=== PATIENT | female | born 1950 | race Caucasian/White ===

== ENCOUNTER → 2018-10-03 13:55 | Outpatient (CLI) | payer OTHER, SELFPAY ==
[2018-10-03 15:02] LABS: BUN Creatinine Ratio 22.2 (6-22); Blood Urea Nitrogen 20 mg/dL (7-17); Calcium 9.7 mg/dL (8.4-10.2); Carbon Dioxide 30 mmol/L (22-32); Chloride 102 mmol/L (98-107); Estimated Glomerular Filt Rate > 60.0 mL/min (>60); Glucose 104 mg/dL (80-110); HEMOLYSIS 31 (0-50); Potassium 4.1 mmol/L (3.4-5.1); Sodium 139 mmol/L (137-145)
[2018-10-03 15:19] LABS: Vitamin D 25 Hydroxy (D3) 45.3 ng/mL (30.0-100.0)
== END ==
PROVIDERS: PCP Student in an Organized Health Care Education/Training Program; Visit Provider Student in an Organized Health Care Education/Training Program
DX: E55.9 Vitamin D deficiency, unspecified (principal); N18.9 Chronic kidney disease, unspecified
CPT/HCPCS: 36415; 80048; 82306

== ENCOUNTER → 2019-01-02 14:05 | Outpatient (CLI) | payer OTHER, SELFPAY | PROVIDERS: PCP Student in an Organized Health Care Education/Training Program; Visit Provider Student in an Organized Health Care Education/Training Program | DX: M85.88 Other specified disorders of bone density and structure, other site (principal); Z78.0 Asymptomatic menopausal state; E07.9 Disorder of thyroid, unspecified | CPT/HCPCS: 77080 ==

== ENCOUNTER → 2020-05-01 14:58 | Outpatient (CLI) | payer OTHER, SELFPAY ==
[2020-05-01 15:49] LABS: Blood Urea Nitrogen 24 mg/dL (7-17); Calcium 8.8 mg/dL (8.4-10.2); Carbon Dioxide 28 mmol/L (22-32); Chloride 104 mmol/L (98-107); Estimated Glomerular Filt Rate 57.5 mL/min (>60); Glucose 104 mg/dL (80-110); HEMOLYSIS < 15 (0-50); Potassium 3.6 mmol/L (3.4-5.1); Sodium 139 mmol/L (137-145)
== END ==
PROVIDERS: PCP Student in an Organized Health Care Education/Training Program; Referring Provider Student in an Organized Health Care Education/Training Program; Visit Provider Student in an Organized Health Care Education/Training Program
DX: I10 Essential (primary) hypertension (principal)
CPT/HCPCS: 36415; 80048

== ENCOUNTER → 2020-10-24 09:15 | Outpatient (CLI) | payer OTHER, SELFPAY ==
[2020-10-24 10:46] LABS: COVID19 -Nasal RAPID Negative (Negative)
== END ==
PROVIDERS: PCP Student in an Organized Health Care Education/Training Program; Visit Provider Surgery
DX: Z20.822 Contact with and (suspected) exposure to COVID-19 (principal)
CPT/HCPCS: 87635; C9803

== ENCOUNTER 2020-10-27 07:24 | Day surgery (SDC) | payer OTHER, SELFPAY ==
[2020-10-27 07:41] VITALS: BP 158/96; PULSE 106; RESP 13; TEMP 36.6; O2SAT 97; BMI 26.6
[2020-10-27] MEDS: LACTATED RINGERS 1,000 ML 200 ML IV (07:56)
--- NOTE | 2020-10-27 08:15 | PM.HP.1 ---
History of Present Illness History of Present Illness Date Patient Seen: 10/27/20 Time Patient Seen: 08:15 Chief complaint: SCREENING COLONOSCOPY Narrative: The patient presents for colorectal sreening. He has had a previously normal colonoscopy 10 years ago.. No personal or family history of colon cancer. On further history denies any recent gastrointestinal symptoms. No nausea, vomiting, abdominal pain, loss of appetite, unexplained weight loss, change in bowel habits, diarrhea, constipation, melena, hematochezia, or bright red blood per rectum. Patient History Medical History Hypertension Hypothyroidism Family & Social History Family History Mother Breast cancer Father Stroke Brother Diabetes mellitus Obesity Grandfather Colon cancer Social History: household members spouse lives independently Yes Tobacco & Substance use: Smoking Status Never smoker alcohol intake current alcohol intake frequency a few times a week Substance Use Type does not use Meds Home Medications and Allergies Home Medications Medication Instructions Recorded Confirmed Type fluticasone propionate 50 1 spray NASAL DAILY gram 10/03/18 10/27/20 History mcg/actuation nasal spray,suspension diltiazem HCl 180 mg 360 mg PO DAILY #180 cap 05/14/20 10/27/20 Rx capsule,extended release 24 hr, controlled levothyroxine 125 mcg tablet 125 mcg PO QDAY #90 tab 06/23/20 10/27/20 Rx Allergies Allergy/AdvReac Type Severity Reaction Status Date / Time No Known Drug Allergies Allergy Verified 05/01/20 13:59 Review of Systems Review of Systems ROS: Yes All systems reviewed with the patient and are negative except as otherwise documented Exam Vital Signs (past 8 hours): - 10/27/20 07:41 Temperature 98 F Pulse Rate 106 H Respiratory Rate 13 Blood Pressure 158/96 H Pulse Oximetry 97 Oxygen Delivery Method Room Air Oxygen Flow Rate 0 Narrative Exam Narrative: General-no acute distress, well nourished adult woman HEENT-moist mucous membranes, no scleral icterus Neck-supple, no lymphadenopathy Chest- non labored respirations, clear to auscultation bilaterally Cardiac-regular rate no peripheral edema Abdomen-soft, nontender, non distended Extremities-warm, well perfused Neurological-alert and oriented, no focal deficits Assessment & Plan Assessment & Plan narrative: The patient requires colorectal screening and colonoscopy is recommended. Technical details were discussed. Risks, benefits, alternatives explained. Risks including but not limited to myocardial infarction, aspiration, bleeding, pain, missed lesion, incomplete examination, need for further radiographic studies, colonic perforation, and need for major abdominal surgery were discussed. All questions were answered to their satisfaction, and they are in agreement with this plan.
[2020-10-27] MEDS: fentaNYL 250 MCG/5 ML INJ IV (08:31)
[2020-10-27] MEDS: MIDAZOLAM 5 MG/5 ML VIAL IV (08:31)
--- NOTE | 2020-10-27 08:48 | PM.OP.ENDO ---
Operative Date/Time/Diagnoses Date of procedure: 10/27/20 Time of procedure: 08:48 Pre-op diagnosis: screening colonoscopy Post-op diagnosis: same Procedure & Clinicians Study performed: colonoscopy Same procedure as scheduled: Yes Indications: 70F last colonoscopy 10 yrs ago normal presents for routine screening Surgeon: Aris Mckeon Procedure Notes Procedure in detail: Medications: Conscious sedation using 5mg IV midazolam and 150mcg IV of fentanyl The history and physical was performed/updated and the patient is ASA class is 2. The procedure was discussed in detail with the patient. Potential risks complications including infection, bleeding, missed diagnosis, perforation, need for surgery, and were explained. Their questions were answered and informed consent was obtained. Patient was brought to the procedure room and placed standard monitoring equipment. The patient's vital signs were monitored continuously throughout the entire procedure. Prior to starting time-out was performed. The patient was placed in the left lateral recumbent position. Procedural sedation was administered. Examination began with a thorough inspection of the perianal area there was no evidence of fissures, fistulae, external hemorrhoids or cutaneous malignancy. The colonoscopy scope was then placed into the anal canal and was advanced to the cecum, which was identified by the ileocecal valve, the appendiceal orifice and the confluence of the taenia. The scope was then slowly withdrawn examining colon thoroughly in all directions, irrigating it of any residual stool. No masses or polyps The patient tolerated the procedure well. They will be discharged once criteria are met. The prep was of good/excellent quality. The withdrawl time was 7 minutes. The sedation time was 26 minutes. Specimen(s): none sent Complications: none Impression: Normal colonoscopy Post-procedure Recommendations: Colonscopy in 10 years Disposition: same day surgery
[2020-10-27 08:50] VITALS: BP 119/63; PULSE 81; RESP 19; TEMP 36.2; O2SAT 94
[2020-10-27 08:55] VITALS: BP 118/61; PULSE 81; RESP 12; O2SAT 94
[2020-10-27 09:00] VITALS: BP 116/65; PULSE 79; RESP 15; O2SAT 95
[2020-10-27 09:04] VITALS: BP 123/72; PULSE 76; RESP 21; O2SAT 95
[2020-10-27 09:09] VITALS: BP 127/74; PULSE 75; RESP 16; TEMP 36.4; O2SAT 96
== END 2020-10-27 09:20 | disposition home or self-care (01) ==
PROVIDERS: PCP Student in an Organized Health Care Education/Training Program; Referring Provider Student in an Organized Health Care Education/Training Program; Visit Provider Surgery
PROC: 0DJD8ZZ Inspection of Lower Intestinal Tract, Via Natural or Artificial Opening Endoscopic (ICD-10-PCS; CPT 45378; principal; 2020-10-27 08:30)
DX: Z12.11 Encounter for screening for malignant neoplasm of colon (principal); I10 Essential (primary) hypertension; E03.9 Hypothyroidism, unspecified
CPT/HCPCS: G0121; 99152; 99153; J2250; J3010

== ENCOUNTER → 2021-09-10 10:39 | Outpatient (CLI) | payer OTHER, SELFPAY ==
[2021-09-10 13:45] LABS: BUN Creatinine Ratio 20.7 (6-22); Blood Urea Nitrogen 18 mg/dL (7-17); Calcium 9.3 mg/dL (8.4-10.2); Carbon Dioxide 29 mmol/L (22-32); Chloride 105 mmol/L (98-107); Estimated Glomerular Filt Rate > 60.0 mL/min (>60); Glucose 96 mg/dL (80-110); HEMOLYSIS < 15 (0-50); Potassium 4.6 mmol/L (3.4-5.1); Sodium 139 mmol/L (137-145)
[2021-09-10 14:07] LABS: TSH w/ Reflex to FT4 0.07 uIU/mL (0.47-4.68)
[2021-09-10 14:40] LABS: Free T4, Direct Thyroxine 1.58 ng/dL (0.78-2.19)
== END ==
PROVIDERS: PCP Student in an Organized Health Care Education/Training Program; Referring Provider Student in an Organized Health Care Education/Training Program; Visit Provider Student in an Organized Health Care Education/Training Program
DX: I10 Essential (primary) hypertension (principal); N18.2 Chronic kidney disease, stage 2 (mild); E03.9 Hypothyroidism, unspecified
CPT/HCPCS: 36415; 80048; 84439; 84443

== ENCOUNTER → 2021-11-14 12:40 | Outpatient (CLI) | payer OTHER, SELFPAY ==
[2021-11-14 14:09] LABS: TSH w/ Reflex to FT4 0.82 uIU/mL (0.47-4.68)
== END ==
PROVIDERS: PCP Student in an Organized Health Care Education/Training Program; Referring Provider Student in an Organized Health Care Education/Training Program; Visit Provider Student in an Organized Health Care Education/Training Program
DX: E03.9 Hypothyroidism, unspecified (principal)
CPT/HCPCS: 36415; 84443

== ENCOUNTER → 2021-12-29 14:15 | Outpatient (CLI) | payer OTHER, SELFPAY ==
--- NOTE | 2021-12-29 14:16 | DI.MG.S_ITS ---
BILATERAL DIGITAL SCREENING MAMMOGRAM 3D/2D WITH CAD: 12/29/2021 CLINICAL: Routine screening. Family history of breast cancer. Comparison is made to exams dated: 09/21/2017 mammogram, 05/29/2015 mammogram, and 01/12/2011 mammogram - [facility]. There are scattered fibroglandular elements in both breasts. Current study was also evaluated with a Computer Aided Detection (CAD) system. There are benign calcifications in both breasts. No significant masses, calcifications, or other findings are seen in either breast. There has been no significant interval change. IMPRESSION: BENIGN There is no mammographic evidence of malignancy. A 1 year screening mammogram is recommended. This exam was interpreted at Station ID: [id number]. NOTE: For mammograms, a report in lay terms will be sent to the patient. Approximately 15% of breast malignancies will not be visualized mammographically. In the management of a palpable breast mass, a negative mammogram must not discourage biopsy of a clinically suspicious lesion. Electronically Signed By: Delilah devlin/pilar:12/29/2021 16:31:44 letter sent: Normal Exam ACR BI-RADS Category 2: Benign Finding(s) 3342F
== END ==
PROVIDERS: PCP Student in an Organized Health Care Education/Training Program; Referring Provider Student in an Organized Health Care Education/Training Program; Visit Provider Student in an Organized Health Care Education/Training Program
DX: Z13.820 Encounter for screening for osteoporosis (principal); Z12.31 Encounter for screening mammogram for malignant neoplasm of breast; Z80.3 Family history of malignant neoplasm of breast; M85.89 Other specified disorders of bone density and structure, multiple sites; Z78.0 Asymptomatic menopausal state; Z79.890 Hormone replacement therapy
CPT/HCPCS: 77063; 77067; 77080

== ENCOUNTER → 2022-01-13 11:31 | Outpatient (CLI) | payer OTHER, SELFPAY ==
[2022-01-13 11:59] LABS: COVID19 -Nasal RAPID Negative (Negative)
== END ==
PROVIDERS: PCP Student in an Organized Health Care Education/Training Program; Visit Provider Physician Assistant
DX: Z20.822 Contact with and (suspected) exposure to COVID-19 (principal)
CPT/HCPCS: 87635

== ENCOUNTER → 2022-03-30 17:36 | Outpatient (CLI) | payer OTHER, SELFPAY ==
[2022-03-30 18:15] LABS: COVID19 -Nasal RAPID Negative (Negative)
== END ==
PROVIDERS: PCP Student in an Organized Health Care Education/Training Program; Visit Provider Physician Assistant
DX: Z20.822 Contact with and (suspected) exposure to COVID-19 (principal)
CPT/HCPCS: 87635

== ENCOUNTER → 2022-09-23 08:13 | Outpatient (CLI) | payer OTHER, SELFPAY ==
[2022-09-23 08:48] LABS: BUN Creatinine Ratio 18.7 (6-22); Blood Urea Nitrogen 20 mg/dL (7-17); Calcium 9.2 mg/dL (8.4-10.2); Carbon Dioxide 29 mmol/L (22-32); Chloride 102 mmol/L (98-107); Cholesterol 213 mg/dL (140-199); Estimated Glomerular Filt Rate 55 mL/min (>60); Glucose 87 mg/dL (80-110); HDL Cholesterol 88 mg/dL (40-60); HEMOLYSIS < 15 (0-50); LDL Cholesterol Calculated 109 mg/dL (<100); Sodium 140 mmol/L (137-145); Triglycerides 79 mg/dL (35-150)
[2022-09-23 09:17] LABS: TSH w/ Reflex to FT4 0.83 uIU/mL (0.47-4.68)
[2022-09-23 16:29] LABS: Hep C Virus Ab w/Reflex Quant NEGATIVE s/c (NEGATIVE)
== END ==
PROVIDERS: PCP Student in an Organized Health Care Education/Training Program; Referring Provider Student in an Organized Health Care Education/Training Program; Visit Provider Student in an Organized Health Care Education/Training Program
DX: I10 Essential (primary) hypertension (principal); Z13.220 Encounter for screening for lipoid disorders; Z11.59 Encounter for screening for other viral diseases; E03.9 Hypothyroidism, unspecified
CPT/HCPCS: 36415; 80048; 80061; 84443; 86803

== ENCOUNTER 2022-10-28 18:20 | Emergency (ER) | payer OTHER, SELFPAY ==
[2022-10-28] VITALS (64 sets, daily range): BP systolic 111–161; BP diastolic 58–79; PULSE 61–79; RESP 8–31; TEMP 36.3–36.4; O2SAT 86–99; BMI 25.8
--- NOTE | 2022-10-28 18:29 | DI.RAD.S_ITS ---
PROCEDURE: XR WRIST RT MIN 3V INDICATIONS: fall from a horse with poss injury TECHNIQUE: Three views of the wrist were acquired. COMPARISON: [facility], , WRIST MINIMUM 3 VIEWS RIGHT, 07/05/2011, 9:32. FINDINGS: Bones: There is a dorsally displaced and impacted transverse distal radius fracture. The distal radioulnar relationship is disrupted. There is an ulnar styloid fracture in the ulnar styloid fragment is not well seen. Radiocarpal relationship is probably intact. Soft tissues: No suspicious soft tissue calcifications. IMPRESSION: 1. Dorsally displaced and impacted distal radius fracture and probable distal radioulnar dissociation. 2. Radiocarpal association is probably intact. Post reduction radiographs are recommended. 3. Displaced ulnar styloid fracture. Dictated by: Jessenia Wild M.D. on 10/28/2022 at 19:19 Approved by: Jessenia Wild M.D. on 10/28/2022 at 19:22
[2022-10-28] MEDS: MORPHINE 2 MG/ML INJ IV (18:51)
[2022-10-28] MEDS: ONDANSETRON 4 MG/2 ML INJ IV ×2 (18:51→23:05)
[2022-10-28 19:08] LABS: Add Manual Diff / Slide Review NO; Basophils Absolute Auto 100 /uL (0-100); Basophils Percent Auto 1.1 % (0-2); Eosinophils Absolute Auto 100 /uL (0-450); Eosinophils Percent Auto 2.1 % (2-4); Hemoglobin 15.5 g/dL (12.0-16.0); Lymphocytes Absolute Auto 2000 /uL (1100-4500); Lymphocytes Percent Auto 35.7 % (25-40); Mean Corpuscular HGB Conc 33.6 % (30-36); Mean Corpuscular Hemoglobin 30.2 PG (26-34); Mean Corpuscular Volume 89.9 fL (80-100); Monocytes Absolute Auto 600 /uL (0-900); Monocytes Percent Auto 11.2 % (3-14); Neutrophils Absolute Auto 2800 /uL (1500-7000); Neutrophils Percent Auto 49.9 % (50-75); Platelet Count 191 X10^3/uL (150-400); Red Blood Cell Count 5.11 X10^6/uL (4.0-5.2); Red Cell Distribution Width 13.4 % (11.6-14.8); White Blood Cell Count 5.5 X10^3/uL (4.5-11.0)
[2022-10-28 19:17] LABS: Alanine Aminotransferase 27 IU/L (<35); Albumin 4.4 g/dL (3.5-5.0); Albumin Globulin Ratio 1.2 (1.0-2.8); Alkaline Phosphatase 92 U/L (38-126); Aspartate Aminotransferase 27 IU/L (14-36); BUN Creatinine Ratio 15.7 (6-22); Bilirubin Total 0.6 mg/dL (0.2-1.3); Blood Urea Nitrogen 18 mg/dL (7-17); Calcium 9.2 mg/dL (8.4-10.2); Carbon Dioxide 28 mmol/L (22-32); Chloride 101 mmol/L (98-107); Estimated Glomerular Filt Rate 51 mL/min (>60); Globulin 3.7 g/dL (1.7-4.1); Glucose 140 mg/dL (80-110); HEMOLYSIS 16 (0-50); Potassium 3.3 mmol/L (3.4-5.1); Sodium 137 mmol/L (137-145); Total Protein 8.1 g/dL (6.3-8.2)
--- NOTE | 2022-10-28 19:43 | ED.UPPEXIN ---
HPI - Extremity Injury (Upper) General Chief Complaint: Extremity Injury, Upper Stated Complaint: R wrist injury Time Seen by Provider: 10/28/22 18:36 Source: patient and family Mode of arrival: Wheelchair History of Present Illness HPI narrative: Patient is a 72-year-old female history of hypothyroid presenting today with a right wrist deformity and pain. She was getting on a horse left foot in [facility] she decided not take it on the horse suddenly she fell down right arm catching herself. She did not hit her head or lose consciousness she has no neck pain no nausea or vomiting. She denies any other injury. She is quite a deformed right wrist able to move her fingers. In triage she got very close to syncopized thing blood pressure was low she did not pass out. She quickly recovered likely a vasovagal reaction she has a chest pain or other symptoms Related Data Previous Rx's Medication Instructions Recorded levothyroxine 112 mcg tablet 112 mcg PO DAILY #90 tabs 09/23/22 diltiazem HCl 180 mg 360 mg PO DAILY #180 caps 10/28/22 capsule,extended release 24 hr, controlled (DILT-XR) Allergies Allergy/AdvReac Type Severity Reaction Status Date / Time No Known Drug Allergies Allergy Verified 10/28/22 18:23 Review of Systems Review of Systems ROS Unobtainable: All systems reviewed & are unremarkable except as noted in HPI and below Patient History Medical History CKD stage G2/A2, GFR 60-89 and albumin creatinine ratio 30-299 mg/g Essential hypertension (11/30/12) Hypothyroidism (acquired) (11/30/12) Family History Mother Breast cancer Father Stroke Brother Diabetes mellitus Obesity Grandfather Colon cancer Social History marital status: number of children: 2 household members: spouse lives independently: Yes education level: college (Bachelor's degree) occupational status: employed Smoking Status: Never smoker alcohol intake: current substance use type: does not use Smoking Status: Never smoker alcohol intake frequency: a few times a week Substance Use Type: does not use Exam Initial Vital Signs Initial Vital Signs: Vital Signs Pulse Rate 61 10/28/22 18:23 Respiratory Rate 16 10/28/22 18:23 Blood Pressure 111/59 L 10/28/22 18:23 Pulse Oximetry 99 10/28/22 18:23 Oxygen Delivery Method Room Air 10/28/22 18:23 GENERAL: Alert 72-year-old female appears uncomfortable in and in [no acute] distress. HEENT: Head atraumatic,EOMI, pupils reactive, face symmetric, [moist] mucous membranes CARDIOVASCULAR: Regular rate and rhythm without murmurs, rubs or gallops. RESPIRATORY: Breath sounds equal bilaterally, no wheezes rales or rhonchi. ABDOMEN: Soft, nontender. Normoactive bowel sounds all 4 quadrants. No guarding or rebound. EXTREMITIES: Normal range of motion, no clubbing or edema. Neurovascularly intact Right upper extremity gross deformity distal radial pulse intact able to move all fingers NEUROLOGICAL: Alert and oriented x4. SKIN: Warm, dry, no laceration, no petechiae, no rashes or lesions. Procedures Orthopedic Fracture Reduction Fracture #1: Time Out Performed: Yes Side: right Fracture Reduction Location: radius and ulna Analgesia: procedural sedation Technique: direct manipulation and traction/counter-traction Post Reduction X-rays Demonstrate: acceptable reduction Post-reduction neuro exam: intact Post-reduction vascular exam: intact Splint Applied: Yes Patient Tolerated Procedure: Well and No complications Procedural Sedation Consent signed: Yes Time out performed: Yes Indication: fracture/dislocation reduction ASA Class: I Mallampati Airway Classification: Class I IV Propofol dose (mg): 100 Intraservice time/total sedation time (min): 11 ED Sedation Level: Moderate (Concious) Patient Tolerated Procedure: Well and No complications Course Orders Ordered: ED Orders 10/28/22 23:18 XR wrist RT 2V Stat Discontinued Medications Hydrocodone Bitart/Acetaminophen (Hydrocodone/Acet 5/325 Prepack) 1 bottle MISC SEEINSTR ONE Stop: 10/28/22 23:20 Last Admin: 10/29/22 00:28 Dose: 1 bottle Documented By: MICHELLE Hydromorphone HCl (Hydromorphone 0.5 Mg Inj) 0.5 mg IV NOW ONE Stop: 10/28/22 19:58 Last Admin: 10/28/22 21:06 Dose: 0.5 mg Documented By: NELIDA Hydromorphone HCl (Hydromorphone 0.5 Mg Inj) 0.5 mg IV NOW ONE Stop: 10/28/22 21:02 Hydromorphone HCl (Hydromorphone 0.5 Mg Inj) 0.5 mg IV NOW ONE Stop: 10/29/22 00:11 Last Admin: 10/29/22 00:27 Dose: 0.5 mg Documented By: MICHELLE Morphine Sulfate (Morphine 2 Mg/Ml Inj) 2 mg IV NOW ONE Stop: 10/28/22 18:37 Last Admin: 10/28/22 18:51 Dose: 2 mg Documented By: ANA Ondansetron HCl (Ondansetron 4 Mg/2 Ml Inj) 4 mg IV NOW ONE Stop: 10/28/22 18:38 Last Admin: 10/28/22 18:51 Dose: 4 mg Documented By: ANA Ondansetron HCl (Ondansetron 4 Mg/2 Ml Inj) 4 mg IV NOW ONE Stop: 10/28/22 23:06 Last Admin: 10/28/22 23:05 Dose: 4 mg Documented By: MICHELLE Ondansetron HCl (Ondansetron 4 Mg Odt Prepack) 1 bottle MISC SEEINSTR ONE Stop: 10/28/22 23:20 Last Admin: 10/29/22 00:28 Dose: 1 bottle Documented By: MICHELLE Propofol (Propofol 200 Mg/20 Ml Vial) 75 mg 1 mg/kg (75 mg) IV NOW ONE Stop: 10/28/22 19:58 Last Admin: 10/28/22 23:10 Dose: 75 mg Documented By: MICHELLE Vital Signs Vital signs: Vital Signs - 8 hr 10/28/22 23:19 10/28/22 23:05 10/28/22 23:25 Temperature 97.4 F L 97.3 F L Pulse Rate 68 71 71 Respiratory Rate 16 14 14 Blood Pressure 154/71 H 140/66 Pulse Oximetry 98 95 Oxygen Delivery Method Oxygen Flow Rate 1 1 10/28/22 23:30 10/28/22 23:35 10/28/22 23:40 Temperature 97.6 F 97.5 F L 97.6 F Pulse Rate 70 73 73 Respiratory Rate 16 14 16 Blood Pressure 137/65 142/71 H 128/64 Pulse Oximetry 96 94 96 Oxygen Delivery Method Oxygen Flow Rate 10/28/22 23:50 10/28/22 23:00 10/28/22 23:00 Temperature 97.5 F L Pulse Rate 76 70 Respiratory Rate 14 12 Blood Pressure 134/66 129/64 Pulse Oximetry 93 95 Oxygen Delivery Method Oxygen Flow Rate 10/28/22 23:11 10/28/22 23:11 10/28/22 23:15 Temperature Pulse Rate 75 71 Respiratory Rate 26 H 16 Blood Pressure 133/65 Pulse Oximetry 96 97 Oxygen Delivery Method Oxygen Flow Rate 10/28/22 23:15 10/28/22 23:20 10/28/22 23:20 Temperature Pulse Rate 69 Respiratory Rate 24 Blood Pressure 161/79 H 154/71 H Pulse Oximetry 98 Oxygen Delivery Method Oxygen Flow Rate 10/28/22 23:25 10/28/22 23:25 10/28/22 22:55 Temperature Pulse Rate 70 72 Respiratory Rate 21 12 Blood Pressure 140/66 Pulse Oximetry 95 94 Oxygen Delivery Method Oxygen Flow Rate 10/28/22 23:05 10/28/22 23:10 10/28/22 23:30 Temperature Pulse Rate 75 76 Respiratory Rate 21 21 Blood Pressure 137/65 Pulse Oximetry 98 97 Oxygen Delivery Method Oxygen Flow Rate 10/28/22 23:30 10/28/22 23:35 10/28/22 23:35 Temperature Pulse Rate 71 73 Respiratory Rate 31 H 22 Blood Pressure 142/71 H Pulse Oximetry 95 95 Oxygen Delivery Method Oxygen Flow Rate 10/29/22 00:00 10/28/22 23:40 10/28/22 23:40 Temperature Pulse Rate 74 76 Respiratory Rate 14 22 Blood Pressure 134/65 136/71 Pulse Oximetry 96 86 L Oxygen Delivery Method Oxygen Flow Rate 10/28/22 23:45 10/28/22 23:45 10/28/22 23:50 Temperature Pulse Rate 73 Respiratory Rate 10 L Blood Pressure 128/64 134/66 Pulse Oximetry 93 Oxygen Delivery Method Oxygen Flow Rate 10/28/22 23:50 10/28/22 23:55 10/28/22 23:55 Temperature Pulse Rate 73 75 Respiratory Rate 11 L 14 Blood Pressure 131/66 Pulse Oximetry 88 L 94 Oxygen Delivery Method Oxygen Flow Rate 10/29/22 00:00 10/29/22 00:00 10/29/22 00:05 Temperature Pulse Rate 75 73 Respiratory Rate 13 11 L Blood Pressure 134/65 Pulse Oximetry 97 96 Oxygen Delivery Method Oxygen Flow Rate 10/29/22 00:05 10/29/22 00:10 10/29/22 00:10 Temperature Pulse Rate 74 Respiratory Rate 23 Blood Pressure 133/65 128/65 Pulse Oximetry 96 Oxygen Delivery Method Oxygen Flow Rate 10/29/22 00:15 10/29/22 00:15 10/29/22 00:20 Temperature Pulse Rate 76 Respiratory Rate 32 H Blood Pressure 147/68 H 134/63 Pulse Oximetry 96 Oxygen Delivery Method Oxygen Flow Rate 10/29/22 00:20 10/29/22 00:39 Temperature 97.6 F Pulse Rate 77 70 Respiratory Rate 21 16 Blood Pressure 132/76 Pulse Oximetry 88 L 95 Oxygen Delivery Method Room Air Oxygen Flow Rate MDM - Extremity Injury (Upper) Lab Data 10/28/22 19:00 10/28/22 19:00 Labs: Lab Results 10/28/22 10/28/22 Range/Units 19:00 19:00 WBC 5.5 (4.5-11.0) X10^3/uL RBC 5.11 (4.0-5.2) X10^6/uL Hgb 15.5 (12.0-16.0) g/dL Hct 46.0 (36-46) % MCV 89.9 (80-100) fL MCH 30.2 (26-34) PG MCHC 33.6 (30-36) % RDW 13.4 (11.6-14.8) % Plt Count 191 (150-400) X10^3/uL Neut % (Auto) 49.9 L (50-75) % Lymph % (Auto) 35.7 (25-40) % [place] % (Auto) 11.2 (3-14) % Eos % (Auto) 2.1 (2-4) % Baso % (Auto) 1.1 (0-2) % Neut # (Auto) 2800 (1851-2049) /uL Lymph # (Auto) 2000 (8727-9818) /uL [place] # (Auto) 600 (0-900) /uL Eos # (Auto) 100 (0-450) /uL Baso # (Auto) 100 (0-100) /uL Sodium 137 (137-145) mmol/L Potassium 3.3 L (3.4-5.1) mmol/L Chloride 101 (98-107) mmol/L Carbon Dioxide 28 (22-32) mmol/L BUN 18 H (7-17) mg/dL Creatinine 1.15 H (0.52-1.04) mg/dL Estimated GFR 51 L (>60) mL/min BUN/Creatinine Ratio 15.7 (6-22) Glucose 140 H (80-110) mg/dL Calcium 9.2 (8.4-10.2) mg/dL Total Bilirubin 0.6 (0.2-1.3) mg/dL AST 27 (14-36) IU/L ALT 27 (<35) IU/L Alkaline Phosphatase 92 (38-126) U/L Total Protein 8.1 (6.3-8.2) g/dL Albumin 4.4 (3.5-5.0) g/dL Globulin 3.7 (1.7-4.1) g/dL Albumin/Globulin Ratio 1.2 (1.0-2.8) Point of Care Testing Test Results Not applicable Imaging Data Extremity x-ray #1: Radiologist's Impression: PROCEDURE:? XR WRIST RT MIN 3V ? INDICATIONS: fall from a horse with poss injury ? TECHNIQUE:? Three views of the wrist were acquired.? ? COMPARISON:? [facility], WRIST MINIMUM 3 VIEWS RIGHT, 07/05/2011, 9:32. ? FINDINGS:? ? Bones:? There is a dorsally displaced and impacted transverse distal radius fracture.? The distal radioulnar relationship is disrupted.? There is an ulnar styloid fracture in the ulnar styloid fragment is not well seen.? Radiocarpal relationship is probably intact. ? Soft tissues:? No suspicious soft tissue calcifications.? ? IMPRESSION:? ? 1. Dorsally displaced and impacted distal radius fracture and probable distal radioulnar dissociation. ? 2. Radiocarpal association is probably intact.? Post reduction radiographs are recommended.? ? 3. Displaced ulnar styloid fracture.? ? Dictated by: Jessenia Wild M.D. on 10/28/2022 at 19:19 ? ? Extremity x-ray #2: Radiologist's Impression: PROCEDURE:? XR WRIST RT 2V ? INDICATIONS: post reduction ? TECHNIQUE:? 2 views of the wrist were acquired.? ? COMPARISON:? [facility], XR WRIST RT MIN 3V, 10/28/2022, 18:30. ? FINDINGS:? ? Bones:? There is slightly improved alignment status post closed reduction of the previously described comminuted transverse distal radius fracture.? There is persistent mild dorsal and radial sided displacement and mild impaction.? Radiocarpal association appears preserved.? A mildly displaced ulnar styloid fracture is redemonstrated. ? Soft tissues:? There is a new external splint present. ? IMPRESSION:? ? 1. Slightly improved alignment status post closed reduction previously described comminuted distal radius fracture with mild dorsal and radial sided displacement as well as mild impaction. ? 2. Mildly displaced ulnar styloid fracture.? ? ? Dictated by: Silvio Pack M.D. on 10/29/2022 at 0:25 ? ? ECG Data Interpretation: Normal sinus rhythm rate 70 TN interval 156 QRS [address] changes no T-wave inversion MDM Narrative Medical decision making narrative: Patient 72-year-old female who presents with right wrist fracture had a near syncopal episode in triage her pressure dropped but quickly resolved she actually did not pass out. Blood work was done for an EKG for this reason. She has no anemia no leukocytosis, potassium is 3.3 creatinine 1.1 previously 1.07 other electrolytes within normal limits. Procedure sedation done for wrist. Dr. Raygoza, updated on patient's symptoms test results agrees with outpatient follow-up Discharge Plan Departure Patient Disposition: Home Clinical Impression: Fracture of wrist Instructions: DI for Wrist Fracture Activity Restrictions/Additional Instructions: *You have been diagnosed with right wrist fracture *What to do: At this time keep wrist in splint at all times. He may need to sleep sitting up. Please call orthopedics tomorrow. You may ice through the splint. You will need surgery *Continue to take medications as directed [place] 1 tablet every 6 hours if needed for [id number] pain *Follow up with your primary care provider in 2-3 days or call [phone] Call orthopedic tomorrow to schedule follow-up appointment *Return to ER if you should have increasing pain numbness tingling or any new, worsening or concerning symptoms Prescriptions: No Action levothyroxine 112 mcg tablet 112 mcg PO DAILY Qty: 90 3RF diltiazem HCl [DILT-XR] 180 mg capsule,ext.rel 24h degradable 360 mg PO DAILY Qty: 180 3RF Referrals: Anil Garcia MD [Primary Care Provider] - Koffi Raygoza MD [Physician] - Stand Alone Forms: Patient Portal/API
[2022-10-28] MEDS: HYDROMORPHONE 0.5 MG INJ IV (21:06)
[2022-10-28] MEDS: propofoL 200 MG/20 ML VIAL 75 MG IV (23:10)
--- NOTE | 2022-10-28 23:18 | DI.RAD.S_ITS ---
PROCEDURE: XR WRIST RT 2V INDICATIONS: post reduction TECHNIQUE: 2 views of the wrist were acquired. COMPARISON: [facility], CR, XR WRIST RT MIN 3V, 10/28/2022, 18:30. FINDINGS: Bones: There is slightly improved alignment status post closed reduction of the previously described comminuted transverse distal radius fracture. There is persistent mild dorsal and radial sided displacement and mild impaction. Radiocarpal association appears preserved. A mildly displaced ulnar styloid fracture is redemonstrated. Soft tissues: There is a new external splint present. IMPRESSION: 1. Slightly improved alignment status post closed reduction previously described comminuted distal radius fracture with mild dorsal and radial sided displacement as well as mild impaction. 2. Mildly displaced ulnar styloid fracture. Dictated by: Silvio Pack M.D. on 10/29/2022 at 0:25 Approved by: Silvio Pack M.D. on 10/29/2022 at 0:28
[2022-10-29] VITALS: BP 134/65; PULSE 74; PULSE 75; RESP 13; RESP 14; O2SAT 96; O2SAT 97
[2022-10-29 00:05] VITALS: BP 133/65; PULSE 73; RESP 11; O2SAT 96
[2022-10-29 00:10] VITALS: BP 128/65; PULSE 74; RESP 23; O2SAT 96
[2022-10-29 00:15] VITALS: BP 147/68; PULSE 76; RESP 32; O2SAT 96
[2022-10-29 00:20] VITALS: BP 134/63; PULSE 77; RESP 21; O2SAT 88
[2022-10-29] MEDS: HYDROMORPHONE 0.5 MG INJ IV (00:27)
[2022-10-29] MEDS: ONDANSETRON 4 MG ODT PREPACK 1 BOTTLE MISC (00:28)
[2022-10-29] MEDS: HYDROCODONE/ACET 5/325 PREPACK 1 BOTTLE MISC (00:28)
[2022-10-29 00:39] VITALS: BP 132/76; PULSE 70; RESP 16; TEMP 36.4; O2SAT 95
== END 2022-10-29 00:35 | disposition home or self-care (01) ==
PROVIDERS: Emergency Provider Emergency Medicine; PCP Student in an Organized Health Care Education/Training Program
DX: S52.501A Unspecified fracture of the lower end of right radius, initial encounter for closed fracture (principal); R07.9 Chest pain, unspecified; W18.30XA Fall on same level, unspecified, initial encounter
CPT/HCPCS: 25605; 36415; 73100; 73110; 80053; 85025; 93005; 93010; 96374; 96375; 96376; 99152; 99284; 99285; J1170; J2270; J2405; J2704

== ENCOUNTER → 2023-11-17 07:03 | Outpatient (CLI) | payer OTHER, SELFPAY ==
[2023-11-17 08:40] LABS: BUN Creatinine Ratio 20.5 (6-22); Blood Urea Nitrogen 18 mg/dL (7-17); Calcium 9.5 mg/dL (8.4-10.2); Carbon Dioxide 29 mmol/L (22-32); Chloride 104 mmol/L (98-107); Cholesterol 219 mg/dL (140-199); Estimated Glomerular Filt Rate > 60 mL/min (>60); Glucose 100 mg/dL (80-110); HDL Cholesterol 89 mg/dL (40-60); HEMOLYSIS < 15 (0-50); LDL Cholesterol Calculated 111 mg/dL (<100); Potassium 4.1 mmol/L (3.4-5.1); Sodium 137 mmol/L (137-145); Triglycerides 95 mg/dL (35-150)
[2023-11-17 09:10] LABS: Thyroid Stimulating Hormone 1.62 uIU/mL (0.47-4.68)
== END ==
PROVIDERS: PCP Family Medicine; Referring Provider Family Medicine; Visit Provider Family Medicine
DX: Z00.00 Encounter for general adult medical examination without abnormal findings (principal); N18.2 Chronic kidney disease, stage 2 (mild); E78.00 Pure hypercholesterolemia, unspecified; E03.9 Hypothyroidism, unspecified; I10 Essential (primary) hypertension
CPT/HCPCS: 36415; 80048; 80061; 84443

== ENCOUNTER → 2025-01-03 07:49 | Outpatient (CLI) | payer OTHER, SELFPAY ==
--- NOTE | 2025-01-03 07:50 | DI.MG.S_ITS ---
MM screening mammo BI: 01/03/2025. BI-RADS: 1 CLINICAL: 74-year old female for bilateral screening mammogram. Tyrer-Cuzick lifetime risk of 2.8%. No personal or first-degree family history of breast cancer. PRIOR EXAMS 12/29/2021, 09/21/2017, 05/29/2015. MAMMOGRAPHY TECHNIQUE: 2D and 3D (tomosynthesis) digital mammographic views obtained, with additional images as needed for full coverage. Current study was also evaluated with a Computer Aided Detection (CAD) system. DENSITY B. There are scattered areas of fibroglandular density. MAMMOGRAPHY FINDINGS Bilateral: No suspicious mass, asymmetry, microcalcification, or other abnormality seen. IMPRESSION: * No evidence of malignancy. RECOMMENDATIONS Bilateral * Annual screening mammography. OVERALL ASSESSMENT CATEGORY BI-RADS-1: Negative. The [employer] recommends annual screening mammography beginning at age 40 for women with average risk of breast cancer. ELECTRONICALLY SIGNED: Teresa Hutson M.D. on 01/03/2025 at 01:31:52 PM PT Interpreting Station ID: [id number]
== END ==
PROVIDERS: PCP Family Medicine; Referring Provider Family Medicine; Visit Provider Family Medicine
DX: Z12.31 Encounter for screening mammogram for malignant neoplasm of breast (principal)
CPT/HCPCS: 77063; 77067

== ENCOUNTER → 2025-02-01 13:56 | Outpatient (CLI) | payer OTHER, SELFPAY ==
[2025-02-01 16:05] LABS: Thyroid Stimulating Hormone 11.6 uIU/mL (0.47-4.68)
== END ==
PROVIDERS: PCP Family Medicine; Referring Provider Family Medicine; Visit Provider Family Medicine
DX: E03.9 Hypothyroidism, unspecified (principal)
CPT/HCPCS: 84443